=== PATIENT | female | born 1955 | race African-American/Black ===

== ENCOUNTER 2022-10-03 18:42 | Observation (INO) ==
[2022-10-03] MEDS ORDERED: LORazepam 1 MG TABLET PO STA (19:41)
[2022-10-03] MEDS ORDERED: ASPIRIN 325 MG TABLET PO STA (19:41)
[2022-10-03 19:50] LABS: Basophils % 0.2 % (0.0-0.8); Eosinophils # 0.1 10*3/uL (0.0-0.87); Eosinophils % 0.4 % (0.00-10.9); Hematocrit 39.6 VOL% (35.7-47.0); Hemoglobin 12.9 GM/DL (12.0-16.0); Immature Granulocytes % 0.3 %; Immature Granulocytes Absolute 0.04 #; Lymphocytes # 3.5 10*3/uL (1.4-4.0); Lymphocytes % 25.2 % (21.3-54.2); Mean Corpuscular HGB Conc 32.6 GM/DL (32-36); Monocytes # 0.7 10*3/uL (0.11-0.8); Monocytes % 5.3 % (1.7-12.7); Neutrophils % 68.6 % (38.7-73.9); Platelet Count 290 T/CUMM (130-400); Red Blood Count 5.82 MC/CUMM (3.8-5.5); Red Cell Distribution Width 15.5 % (9.3-17.3)
[2022-10-03 20:01] LABS: Calcium 10.3 MG/DL (8.5-10.1); Osmolality,Calculated 279.7 MOS/KG (273-304)
[2022-10-03] MEDS ORDERED: SODIUM CHLORIDE 0.9% 500 ML IV STA (21:23)
[2022-10-03] MEDS ORDERED: POTASSIUM CHLORIDE 20 MEQ TABLET PO STA (21:24)
[2022-10-03] MEDS ORDERED: ALUMINUM/MAGNES/SIMETH MAX STR 30 ML UDCUP PO PRN (21:38)
[2022-10-03] MEDS ORDERED: hydrALAZINE 20 MG/1 ML VIAL IV PRN (21:38)
[2022-10-03] MEDS ORDERED: NITROGLYCERIN SL 0.4 MG TABLET SL PRN (21:38)
[2022-10-03] MEDS ORDERED: ACETAMINOPHEN 325 MG TABLET PO PRN (21:38)
[2022-10-03] MEDS ORDERED: ONDANSETRON 4 MG/2 ML VIAL IV PRN (21:38)
[2022-10-03] MEDS ORDERED: ALPRAZolam 0.5 MG TABLET PO PRN (22:37)
[2022-10-03 23:01] LABS: Barbiturates Screen,Urine Negative (Negative); Benzodiazepines Screen,Urine Negative (Negative); Cannabinoid Screen,Urine Positive (Negative); Opiate Screen,Urine Negative (Negative); Phencyclidine Screen,Urine Negative (Negative)
[2022-10-03] MEDS ORDERED: CITALOPRAM 20 MG TABLET PO SCH (23:30)
[2022-10-03] MEDS: SODIUM CHLOR 0.9% KCL 20 MEQ 20 MEQ/1,000 ML BAG IV SCH (23:58)
[2022-10-04 02:59] LABS: Basophils % 0.3 % (0.0-0.8); Eosinophils # 0.1 10*3/uL (0.0-0.87); Eosinophils % 0.5 % (0.00-10.9); Hematocrit 35.3 VOL% (35.7-47.0); Hemoglobin 11.7 GM/DL (12.0-16.0); Immature Granulocytes % 0.3 %; Immature Granulocytes Absolute 0.03 #; Lymphocytes # 2.8 10*3/uL (1.4-4.0); Lymphocytes % 27.8 % (21.3-54.2); Mean Corpuscular HGB Conc 33.1 GM/DL (32-36); Mean Corpuscular Volume 67.8 FL (87-102); Mean Platelet Volume 11.7 FL (9.6-12.0); Monocytes # 0.5 10*3/uL (0.11-0.8); Monocytes % 4.6 % (1.7-12.7); Neutrophils % 66.5 % (38.7-73.9); Platelet Count 266 T/CUMM (130-400); Red Blood Count 5.21 MC/CUMM (3.8-5.5); Red Cell Distribution Width 15.1 % (9.3-17.3); White Blood Count 10.2 T/CUMM (4-12)
[2022-10-04 03:11] LABS: INR 0.9; PT Patient Result 10.5 SECS (10.1-12.1); Partial Thromboplastin Time 29.1 SECS (23.7-32.9)
[2022-10-04 03:46] LABS: Calcium 8.4 MG/DL (8.5-10.1); Potassium 3.6 MMOL/L (3.5-5.1); Risk Ratio 3.17; Thyroid Stimulating Hormone 1.62 uIU/ml (0.358-3.74); VLDL Cholesterol 14.6 MG/DL
[2022-10-04] MEDS ORDERED: amLODIPine 10 MG TABLET PO SCH (09:00)
[2022-10-04] MEDS ORDERED: ENOXAPARIN 40 MG/0.4 ML SYRINGE SUBCUT SCH (09:00)
[2022-10-04] MEDS ORDERED: DOCUSATE SODIUM 100 MG CAPSULE PO SCH (09:00)
[2022-10-04] MEDS ORDERED: METOPROLOL TARTRATE 50 MG TABLET PO SCH (09:00)
[2022-10-04] MEDS ORDERED: ASPIRIN EC 325 MG TABLET PO SCH (09:00)
[2022-10-04] MEDS ORDERED: PANTOPRAZOLE 40 MG TABLET PO SCH (09:00)
[2022-10-04] MEDS: SODIUM CHLOR 0.9% KCL 20 MEQ 20 MEQ/1,000 ML BAG IV SCH (09:35)
[2022-10-04 12:13] VITALS: BP 155/87
== END 2022-10-04 13:06 | disposition home or self-care (01) ==
LOC: N.EDINP 18:42 → N.ED 18:42 → N.TELEN 22:55
PROVIDERS: ADMIT Internal Medicine; ATTEND Internal Medicine